=== PATIENT | male | born 1970 | race Caucasian/White ===

== ENCOUNTER 2020-10-09 10:39 | Emergency (ER) | payer SELFPAY ==
[~2020-10-09] VITALS: Ht 167.6 cm; Wt 68.0 kg
[2020-10-09 10:44] VITALS: BP 141/86
[2020-10-09] MEDS ORDERED: ACETAMINOPHEN 325 MG TABLET PO ONE (11:00)
[2020-10-09] MEDS ORDERED: IBUPROFEN 600 MG TABLET PO ONE (11:00)
--- NOTE | 2020-10-09 11:00 | NUR ---
JOHNNA Officers here to see patient
[2020-10-09] MEDS ORDERED: ACETAMINOPHEN 325 MG TABLET ONE (11:20)
[2020-10-09] MEDS ORDERED: IBUPROFEN 600 MG TABLET ONE (11:20)
--- NOTE | 2020-10-09 11:23 | NUR ---
Pt NO longer in [facility]
--- NOTE | 2020-10-09 11:29 | NUR ---
PT NO longer in the prmises. Eloped Dr Delgado notified
== END 2020-10-09 11:31 | disposition home or self-care (01) ==
LOC: ER 10:42
DX: S20.212A Contusion of left front wall of thorax, initial encounter (principal); S50.12XA Contusion of left forearm, initial encounter; F32.9 Major depressive disorder, single episode, unspecified; F41.9 Anxiety disorder, unspecified; Z59.0 Homelessness; Y08.89XA Assault by other specified means, initial encounter; Y93.89 Activity, other specified; Y92.89 Other specified places as the place of occurrence of the external cause; Y99.8 Other external cause status

== ENCOUNTER 2020-10-09 12:31 | Emergency (ER) | payer SELFPAY ==
[~2020-10-09] VITALS: Ht 165.1 cm; Wt 68.0 kg
[2020-10-09 13:04] VITALS: BP 124/86
--- NOTE | 2020-10-09 14:36 | NUR ---
Patient discharged to home in stable condition. Written and verbal after care instructions given. Patient verbalizes understanding of instruction.
[2020-10-09] MEDS ORDERED: IBUPROFEN 600 MG TABLET ONE (14:39)
[2020-10-09] MEDS ORDERED: IBUPROFEN 600 MG TABLET PO ONE (15:00)
== END 2020-10-09 14:44 | disposition home or self-care (01) ==
LOC: ER 12:35
DX: S50.12XA Contusion of left forearm, initial encounter (principal); S20.212A Contusion of left front wall of thorax, initial encounter; F32.9 Major depressive disorder, single episode, unspecified; F41.9 Anxiety disorder, unspecified; Z59.0 Homelessness; Y08.89XA Assault by other specified means, initial encounter; Y93.89 Activity, other specified; Y92.89 Other specified places as the place of occurrence of the external cause; Y99.8 Other external cause status